=== PATIENT | male | born 1990 | race Caucasian/White ===

== ENCOUNTER 2016-07-19 14:36 | Emergency (ER) | payer OTHER ==
[2016-07-19 14:38] VITALS: BP 126/66; PULSE 222; RESP 14; TEMP 98.2; O2SAT 98
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
[2016-07-19] MEDS ORDERED: IBUP800T23 PO (18:41)
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
[2016-07-19] MEDS ORDERED: IBUPROFEN 800 MG TAB PO ONE (19:00)
== END 2016-07-19 18:58 | disposition home or self-care (01) ==
LOC: NEPB 14:36
DX: S83.91XA Sprain of unspecified site of right knee, initial encounter (principal); S96.911A Strain of unspecified muscle and tendon at ankle and foot level, right foot, initial encounter; W18.09XA Striking against other object with subsequent fall, initial encounter; V09.00XA Pedestrian injured in nontraffic accident involving unspecified motor vehicles, initial encounter; Y93.02 Activity, running; Y92.9 Unspecified place or not applicable
CPT/HCPCS: 70450; 73564; 73630; 99284; E0113

== ENCOUNTER 2016-07-24 19:17 | Emergency (ER) | payer OTHER ==
[~2016-07-24] VITALS: Ht 180.3 cm; Wt 73.0 kg
[~2016-07-24 19:17] MED LIST: IBUP800T23 PO
[2016-07-24 19:28] VITALS: BP 138/79; PULSE 92; RESP 16; TEMP 98.6; O2SAT 98
[2016-07-24] MEDS ORDERED: XANA1TAB2 PO (19:28)
[2016-07-24 19:44] VITALS: BP 131/81; PULSE 83; RESP 18; TEMP 98.7; O2SAT 98
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
[2016-07-24 21:38] LABS: AUTOMATED NEUTROPHIL # 5.5 TH/MM3 (1.8-7.7); BASOPHIL % 0.3 % (0.0-2.0); EOSINOPHIL # 0.2 TH/MM3 (0-0.4); EOSINOPHIL % 1.7 % (0.0-4.0); HEMATOCRIT 38.6 % (39.0-51.0); HEMO FLAGS DIFF FINAL; LYMPHOCYTE # 2.8 TH/MM3 (1.0-4.8); MEAN CELL VOLUME 85.7 FL (80.0-100.0); MEAN CORPUSCULAR HEMOGLOBIN 29.5 PG (27.0-34.0); MEAN CORPUSCULAR HGB CONC 34.4 % (32.0-36.0); MONO % 8.9 % (0.0-8.0); NEUT % 59.1 % (16.0-70.0); PLATELET COUNT 294 TH/MM3 (150-450); RED BLOOD COUNT 4.51 MIL/MM3 (4.50-5.90); RED CELL DISTRIBUTION WIDTH 12.3 % (11.6-17.2); WHITE BLOOD COUNT 9.3 TH/MM3 (4.0-11.0)
[2016-07-24 21:45] LABS: AMPHETAMINE, URINE NEG (NEG); BARBITURATES, URINE NEG (NEG); COCAINE, URINE NEG (NEG)
[2016-07-24 22:01] LABS: ANION GAP 8 MEQ/L (5-15)
[2016-07-24 22:04] LABS: ACETAMINOPHEN LESS THAN 2.0 MCG/ML (10.0-30.0); ALKALINE PHOSPHATASE 44 U/L (45-117); ALT (GPT) 28 U/L (12-78); AST (GOT) 22 U/L (15-37); BICARBONATE 29.6 MEQ/L (21.0-32.0); BLOOD UREA NITROGEN 11 MG/DL (7-18); CHLORIDE 102 MEQ/L (98-107); GLOMERULAR FILTRATION RATE 89 ML/MIN (>89); POTASSIUM 3.5 MEQ/L (3.5-5.1); SODIUM (NA) 140 MEQ/L (136-145); TOTAL BILIRUBIN ADULT 0.3 MG/DL (0.2-1.0)
[2016-07-24 22:14] VITALS: BP 114/68; PULSE 88; RESP 18; O2SAT 100
[2016-07-25 02:00] VITALS: BP 93/50; PULSE 50; RESP 18; O2SAT 96
[2016-07-25 06:40] VITALS: BP 101/52; PULSE 56; RESP 18; O2SAT 99
== END 2016-07-25 12:04 ==
LOC: NEDAMB 19:17 → NEPJ 07-25 12:04
DX: F43.21 Adjustment disorder with depressed mood (principal); R45.851 Suicidal ideations; Z72.0 Tobacco use
CPT/HCPCS: 80053; 80307; 80320; 80329; 85025; 99285; G0480; G0481